=== PATIENT | male | born 1980 | race African-American/Black ===

== ENCOUNTER 2018-11-12 16:42 | Inpatient (IN) | payer OTHER ==
[~2018-11-12] VITALS: Ht 170.2 cm; Wt 150.6 kg
[2018-11-12 17:00] VITALS: BP 112/75
[2018-11-12 17:02] LABS: URINE BLOOD NEGATIVE (Negative); URINE CLARITY CLEAR; URINE COLOR YELLOW; URINE GLUCOSE-RANDOM 3+ (Negative); URINE KETONES 1+ (Negative); URINE LEUKOCYTES-REFLEX NEGATIVE (Negative); URINE NITRITE-REFLEX NEGATIVE (Negative); URINE PROTEIN 1+ (Negative); URINE SPECIFIC GRAVITY >= 1.030 (1.005-1.030); URINE UROBILINOGEN 0.2 E.U./dl (0.2-1.0)
[2018-11-12] MEDS ORDERED: METFORMIN HCL500 MG PO (17:03)
[2018-11-12] MEDS ORDERED: GLIPIZIDE 10 MG10 MG PO (17:03)
[2018-11-12 17:04] LABS: ICTOTEST (BILI CONFIRMATORY) Negative (Negative); URINE BILIRUBIN 2+ (Negative)
[2018-11-12 17:12] LABS: ABSOLUTE BASOPHILS 0.1 thou/uL (0.0-0.2); ABSOLUTE LYMPHOCYTES 1.6 thou/uL (0.8-5.3); ABSOLUTE MONOCYTES 0.7 thou/uL (0.0-1.2); BASOPHILS 0.4 %; EOSINOPHILS 0.1 %; HEMOGLOBIN 16.7 gm/dL (14.0-18.0); LYMPHOCYTES 12.2 %; MCH 30.1 pg (26.0-34.0); MCHC 34.1 g/dL (28.0-37.0); MCV 88.2 fL (80.0-100.0); MONOCYTES 4.9 %; MPV 9.2 fl. (7.2-11.1); NUCLEATED RBCS 0 /100WBC; PLATELET COUNT* 279 thou/uL (150-400); POLYS 82.4 %; RBC 5.55 mil/uL (4.50-6.00); RDW-CV 12.9 % (10.5-14.5); WBC 13.4 thou/uL (4.0-11.0)
[2018-11-12 17:29] LABS: CALCIUM 11.8 mg/dL (8.5-10.1); CREATININE 3.1 mg/dL (0.6-1.3); POTASSIUM 5.3 mmol/L (3.5-5.1)
[2018-11-12 17:30] LABS: ALBUMIN 4.7 g/dL (3.4-5.0); TOTAL BILIRUBIN 1.3 mg/dL (<0.1-1.0); TOTAL PROTEIN 9.4 g/dL (6.4-8.2)
[2018-11-12 18:12] LABS: APTT 27.5 Seconds (25.0-31.3); PROTIME 10.3 Seconds (9.20-11.50)
[2018-11-12 18:55] VITALS: BP 160/58
[2018-11-12 19:30] VITALS: BP 131/72; BP 134/68
[2018-11-13] VITALS: BP 123/65
[2018-11-13] MEDS ORDERED: LISINOPRIL20 MG PO (01:25)
[2018-11-13] MEDS ORDERED: TRULICITY0.75 MG/0. SUBQ (01:26)
[2018-11-13 03:50] VITALS: BP 135/77
[2018-11-13 04:50] LABS: HEMATOCRIT 44.3 % (42.0-52.0); HEMOGLOBIN 15.2 gm/dL (14.0-18.0); MCH 29.9 pg (26.0-34.0); MCHC 34.3 g/dL (28.0-37.0); MCV 87.3 fL (80.0-100.0); MPV 9.6 fl. (7.2-11.1); RBC 5.07 mil/uL (4.50-6.00); WBC 11.4 thou/uL (4.0-11.0)
--- NOTE | 2018-11-13 04:52 | NUR ---
RECEIVED PT FROM ED PER CART AT APPROX 1920. PT IS AWAKE AND ORIENTED X4. PLACED ON TELE-TRACING ST. ADMISSION ASSESSMENT DONE AND CHARTED. PT ORIENTED TO ROOM AND ON THE USE OF CALL LIGHT. PT C/O RUQ ABDOMINAL PAIN RELIEVED BY FENTANYL GIVEN PER MAR. CRITICAL HIGH BLOOD SUGAR NOTED (517 mg/dl) DR BORJA INFORMED, PLACED PT ON HIGH DOSE INSULIN SLIDING SCALE REMIMEN, AND STARTED LANTUS ORDERED. IV HYDRATION MAINTAINED. CALL LIGHT WITHIN REACH. HOURLY ROUDING DONE FOR PT SAFETY.
[2018-11-13 05:22] LABS: CALCIUM 10.4 mg/dL (8.5-10.1)
[2018-11-13 05:24] LABS: CREATININE 1.9 mg/dL (0.6-1.3)
[2018-11-13 08:30] VITALS: BP 139/84
--- NOTE | 2018-11-13 11:08 | NUR ---
Pt is A&O. Resides at home with his . Active and independent. No DME. No hx of HH or SNF. Goal is home at dc, no needs anticipated.
--- NOTE | 2018-11-13 11:35 | EKG ---
[place] [address] ELECTROCARDIOGRAM REPORT Name: SHRUTHI BOWEN Room: [address] IN [facility]#: [id number] Admission: 11/12/18 Attend Phys: Jones Aguillon Discharge: Date of : 80 Report #: [id number] THIS REPORT FOR: //name// [facility] ED Test Date: 2018-11-12 Test Time: 17:28:58 Pat Name: SHRUTHI BOWEN Department: Room: [facility] Gender: M [employer] Operator: [place] : 1980 Requested By: Pablo Owens Order Number: [id number] MD: Jose Ramon Chandra Measurements Intervals [place] Rate: 101 P: 49 MT: 174 QRS: 34 QRSD: 82 T: 6 QT: 339 QTc: 440 Interpretive Statements Sinus tachycardia No previous ECG available for comparison Electronically Signed On 11-13-2018 11:34:46 CDT by Jose Ramon Chandra [email or web address] <ELECTRONICALLY SIGNED> By: Jose Ramon Chandra MD, [facility] 11/13/18 1134 1728 27 Jose Ramon Chandra MD, [facility] /EPI
[2018-11-13 11:39] VITALS: BP 153/85
--- NOTE | 2018-11-13 13:36 | NUR ---
ASSUMED PT CARE AT 0700 PT DENIES PAIN STATES HAS GAS GAVE MEDICATION WHICH HELPED PT, PT DENIES SOA ON RA, PT IS UP AD MARCELA PT IS NOT A FALL RISK, PT BLOOD SUGAR ELEVATED AROUND NOON PAGED PHYSICIAN TO NOTIFY PT IS ALREADY ON INSULIN SLIDING SCALE NO NEW ORDERS OBTAINED, WILL CONTINUE TO MONITOR
[2018-11-13 15:30] VITALS: BP 120/69
[2018-11-13 19:50] VITALS: BP 141/80
[2018-11-14] VITALS: BP 143/86
[2018-11-14 04:03] VITALS: BP 155/83
[2018-11-14 04:52] LABS: CALCIUM 9.2 mg/dL (8.5-10.1); CREATININE 1.1 mg/dL (0.6-1.3); MAGNESIUM 1.8 mg/dL (1.8-2.4); POTASSIUM 3.9 mmol/L (3.5-5.1)
--- NOTE | 2018-11-14 05:39 | NUR ---
PT CARE ASSUMED AT 1930. SAT MAINTAINED IN RA. ALERT AND ORIENTED X4. CALL LIGHT WITHIN REACH AND BED IN LOW POSITION. C/O PAIN, MEDICATION GIVEN PER EMAR. HOURLY ROUNDING DONE FOR PT SAFETY.
[2018-11-14 09:30] VITALS: BP 146/81
[2018-11-14 10:07] LABS: GLYCOHEMOGLOBIN (HGB A1C) 10.4 % (4.8-5.6)
[2018-11-14 11:34] VITALS: BP 152/92
[2018-11-14] MEDS ORDERED: NORCO 5-325 TA1 EAC1 PO (12:16)
--- NOTE | 2018-11-14 13:29 | NUR ---
Nutrition: pt with class III morbid obesity. Reports good appetite. RFT's WNL today, BG still elevated, albumin WNL. On CHO controlled diet. Pt asked some questions about DM diet that were answered, but pt declined further diet edu. Assessed at low nutrition risk.
[2018-11-14 13:53] VITALS: BP 152/92
--- NOTE | 2018-11-17 10:11 | H ---
[address] [address] HISTORY AND PHYSICAL Name: ANDRÉSSHRUTHI Josh Room: [address]#: [id number] Admission: 11/12/18 Attend Phys: Jones Aguillon Discharge: 11/14/18 Date of : 80 Report #: [id number] THIS REPORT FOR: //name// CC: Ramona Palencia DATE OF SERVICE: 11/12/2018 CHIEF COMPLAINT: Abdominal pain. HISTORY OF PRESENT ILLNESS: The patient is a 38-year-old gentleman who does have history of diabetes who presented to us here for abdominal pain. The patient states that he has been having abdominal pain since 2-3 days ago. It lasts for about 3 hours. He took Zantac. It did help. He described it as a dull achy feeling in the epigastric area. He went to work Saturday, started having some chills, was found to have on and off vomiting started last night and this morning could not keep anything down. So, he finally came into the Emergency Room. He had a CAT scan, which is currently pending. He however, noted to be hyperglycemic. He is being admitted for further management. He also noted to have acute renal failure. PAST MEDICAL HISTORY: Diabetes diagnosed in 2010 and hypertension. ALLERGIES: None. FAMILY HISTORY: Diabetes, CAD. MEDICATIONS: He takes include metformin 500 b.i.d., glipizide 5 mg b.i.d., and lisinopril 20 mg daily. Glipizide and lisinopril, he stopped about 3 weeks and he ran out of it. He just restarted his medication about 5 days ago. He also was out of metformin for about a week and he started taking it about 3 days ago. ALLERGIES: No drug allergies. SOCIAL HISTORY: The patient lives with his fiance. He occasionally drinks alcohol. No illicit drug use. No smoking. REVIEW OF SYSTEMS: The patient denies any fever, but does have some chills. Does have the nausea and vomiting, abdominal pain, and occasional shortness of breath, but not now. No chest pain, no dysuria. A 12-point review of system unremarkable as mentioned above. PHYSICAL EXAMINATION: VITAL SIGNS: Temperature is 36.7, heart rate of 119, respiratory rate 19, blood pressure 112/75, 100% on room air. GENERAL: The patient is alert. She is morbidly obese, [place] [address] HISTORY AND PHYSICAL Name: SHRUTHI BOWEN Room: [address]#: [id number] Admission: 11/12/18 Attend Phys: Jones Aguillon Discharge: 11/14/18 Date of : 80 Report #: [id number] distress. HEENT: Normocephalic, atraumatic. Nares patent. Clear pharynx. NECK: Supple. No lymphadenopathy. CARDIOVASCULAR: Normal rate, regular rhythm. No murmurs noted. RESPIRATORY: Clear to auscultation bilaterally. No wheeze. No crackles. ABDOMEN: Obese and tender in the hypogastric area and the periumbilical area. GENITOURINARY: Does have some positive CVA tenderness. MUSCULOSKELETAL: Moves extremities. NEUROLOGIC: Grossly normal. PSYCHIATRIC: The patient is calm and cooperative. LABORATORY DATA: Reviewed and CBC showed a white count of 13.4, hemoglobin 16.7, platelet count is 279. Coags unremarkable. Chemistry showed sodium is 123, potassium is 5.3, chloride is 85, bicarbonate is 24, anion gap is 14, BUN is 34, and creatinine is 3.1. Her glucose is 654, calcium is 11.8, magnesium is 2.4, but total bilirubin is 1.3. CRP is 12.3, total protein 7.4, AST 25, ALT 42, alkaline phosphatase 93, troponin 0.06, albumin is 4.7, lipase is 301. Urine showed 1+ protein and ketone, bilirubin is 2+. Random glucose is ____. Blood culture is still pending. Chest x-ray and CAT scan of the abdomen has been pending. IMPRESSION: The patient is a 38-year-old gentleman admitted in the hospital for: 1. Acute renal failure might be of some likely prerenal etiology, worsened with the patient's metformin and lisinopril. 2. Type 2 diabetes uncontrolled with hyperglycemia. on p.o. diabetic medications. 3. Hyponatremia, likely pseudohyponatremia. 4. Uncontrolled diabetes mellitus with hyperglycemia. 5. Abdominal pain, unsure if he has some colitis going on. 6. Mild hyperkalemia dehydration. 7. Hypercalcemia, likely due to dehydration. PLAN: The patient will be admitted. I expect this patient is going to be here more than 2 midnights. We will keep him n.p.o. for now until we get the CAT scan back. Unfortunately, we cannot do a contrast CAT scan because of his kidney function. We will hydrate him overnight. We will follow his labs in the morning. We will hold the patient's metformin, glipizide, and lisinopril. We will put him on insulin sliding scale. We will give him fluids overnight. We will check urine sodium and creatinine. Discussed with the patient regarding code status and he is a full code. <ELECTRONICALLY SIGNED> By: Kathie Palencia MD 11/17/18 1011 1823 [id number] Palencia MD /nt
== END 2018-11-14 14:35 | disposition home or self-care (01) | DRG 682 ==
LOC: M.ERS 16:42 → M.2W 18:05 → M.TBA-ER 18:05 → M.2W 19:16
PROVIDERS: Physician Assistant; ADMIT Internal Medicine
DX: N17.9 Acute kidney failure, unspecified (principal); E11.00 Type 2 diabetes mellitus with hyperosmolarity without nonketotic hyperglycemic-hyperosmolar coma (NKHHC); E87.1 Hypo-osmolality and hyponatremia; Z68.43 Body mass index [BMI] 50.0-59.9, adult; E11.65 Type 2 diabetes mellitus with hyperglycemia; K29.70 Gastritis, unspecified, without bleeding; E86.0 Dehydration; E87.5 Hyperkalemia; I10 Essential (primary) hypertension; E66.9 Obesity, unspecified; E83.52 Hypercalcemia; K76.0 Fatty (change of) liver, not elsewhere classified; Z91.19 Patient's noncompliance with other medical treatment and regimen; Z79.899 Other long term (current) drug therapy; Z79.84 Long term (current) use of oral hypoglycemic drugs; Z83.3 Family history of diabetes mellitus; Z82.49 Family history of ischemic heart disease and other diseases of the circulatory system